=== PATIENT | female | born 1990 | race Caucasian/White ===

== ENCOUNTER 2024-08-17 07:27 | Outpatient (CLI) | payer OTHER, SELFPAY ==
--- NOTE | 2024-08-17 08:00 | CRLHL7_ITS ---
For Patients: As a result of the Century Cures Act, medical imaging exams and procedure reports are released immediately into your electronic medical record. You may view this report before your referring provider. If you have questions, please contact your health care provider. Indication: Chronic sinusitis. Technique: Noncontrast axial CT of the paranasal sinuses with coronal reformats are provided. No comparisons. Findings: 1-2 millimeter mucosal thickening floor the right maxillary sinus with 3-4 millimeter thick mucosal thickening within the floor of the left maxillary sinus. The remainder of the visualized paranasal sinuses are clear. The ostiomeatal complexes are patent bilaterally. The visualized intraorbital contents appear within normal limits. Impression: 1. Minor inflammatory change within the floor of the maxillary sinuses. Please note that all CT scans at this facility use dose modulation, iterative reconstruction, and/or weight-based dosing when appropriate to reduce radiation dose to as low as reasonably achievable. Dictated by Reji Snell MD @ 08/18/2024 3:46:07 PM (Electronically Signed)
== END 2024-08-17 07:28 | disposition home or self-care (01) ==
PROVIDERS: Visit Provider Otolaryngology
DX: J32.9 Chronic sinusitis, unspecified (principal)
CPT/HCPCS: 70486

== ENCOUNTER 2024-09-09 09:30 | Day surgery (SDC) | payer OTHER, SELFPAY ==
[2024-09-09] VITALS (12 sets, daily range): BP systolic 103–149; BP diastolic 78–105; PULSE 68–98; RESP 12–22; TEMP 36.4–36.8; O2SAT 93–98; BMI 34.7
[2024-09-09] MEDS: 0.9 % SODIUM CHLORIDE 500 ML 500 ML 100 ML IV (09:56)
[2024-09-09] MEDS: SODIUM CHLORIDE 0.9 % (FLUSH) 10 ML SYRINGE IVF (09:56)
[2024-09-09 09:57] LABS: Ur HCG Qualitative* Negative (Negative)
[2024-09-09] MEDS: OXYMETAZOLINE 0.05% NASAL SPRAY 2 SPRAY NOSTRIL-B (10:00)
[2024-09-09] MEDS: COCAINE HCL 4 % 4 ML SOLUTION NOSTRIL-B (11:47)
[2024-09-09] MEDS: MUPIROCIN 1 GM PACKET 1 APPLIC TOPICAL (11:47)
[2024-09-09] MEDS: AYR SALINE NASAL GEL 1 APPLIC NOSTRIL-B (11:47)
[2024-09-09] MEDS: BUPIVACAINE 0.5%/EPINEPHRINE 0.9 MG (30.9 ML) INJECTION (11:55)
--- NOTE | 2024-09-09 12:17 | W.ANESCHARGE ---
Anesthesia Charges Start Date/Time Anesthesia Start Date: 09/09/24 Anesthesia Start Time: 11:25 Stop Date/Time Anesthesia Stop Date: 09/09/24 Anesthesia Stop Time: 12:18
[2024-09-09] MEDS: fentaNYL 100 MCG/2 ML inj 50 MCG IVP (12:22)
--- NOTE | 2024-09-09 12:34 | SUR.PHASEI ---
Patient came to PACU with complaints of terrible throat pain. Vital signs taken, Patient's EKG in NSR and then Bigeminy and back to NSR. Anesthesia told of Nandainy and then patient stayed in NSR after approximately 1 minute. Medication given for throat pain.
--- NOTE | 2024-09-09 12:41 | W.PM.ENTPROC ---
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 0 degree endoscope was used to visualize left middle turbinate tara bullosa. Was incised along its inferolateral aspect and a small amount of bone resected with Jack forceps. The remainder of the turbinate was crushed with the Augie forceps A stab incision was made in the anterior head of the left inferior turbinate a tunnel created with a Luisito dissector the tara bone was outfractured a conservative anterior submucous resection performed. The Coblation was used for hemostasis. This was repeated on the right side in identical fashion He right hemitransfixion incision was made left anterior and posterior tunnels were created. A vertical incision was made through the cartilage just anterior to the bone and a right posterior tunnel created. The deflected portions of nasal septal bone were resected a large piece trimmed returned to intraseptal space. Hemitransfixion was closed with 2 4-0 chromic sutures. The image guidance system was used to confirm placement and the inferior quarter of the uncinate process taken down with a micro backbiter exposing natural ostium to maxillary sinus. This opening was then enlarged to an 8 mm diameter. I removed the small amount of polypoid tissue that was partially occluding the os. Silastic stents were secured on either side the septum with 3-0 nylon and Merocel packing placed in each side the nose. The patient procedure well was taken recovery in satisfactory condition. Blood loss was 25 mL. Surgeon: Santhosh Sloan MD
--- NOTE | 2024-09-09 12:41 | SUR.PHASEI ---
Patient meets anesthesia discharge criteria from PACU
--- NOTE | 2024-09-09 12:53 | W.ANESCHARGE ---
Anesthesia Charges Start Date/Time Anesthesia Start Date: 09/09/24 Anesthesia Start Time: 11:25 Stop Date/Time Anesthesia Stop Date: 09/09/24 Anesthesia Stop Time: 12:18
[2024-09-09] MEDS: IBUPROFEN 200 MG TABLET PO (12:55)
[2024-09-09] MEDS: ACETAMINOPHEN 325 MG TABLET PO (12:55)
[2024-09-09] MEDS: OXYCODONE 5 MG TABLET PO (12:55)
== END 2024-09-09 13:39 | disposition home or self-care (01) ==
PROVIDERS: Anesthesiology; Visit Provider Otolaryngology
PROC: (CPT 31231; principal; 2024-09-09 11:00)
DX: J34.2 Deviated nasal septum (principal); J34.3 Hypertrophy of nasal turbinates; J32.0 Chronic maxillary sinusitis; J34.89 Other specified disorders of nose and nasal sinuses; R51.9 Headache, unspecified; J33.9 Nasal polyp, unspecified
CPT/HCPCS: 30520; 30140; 31267; 00160; 81025; 88305; A9270; J0330; J1100; J1630; J2405; J2704; J3010; J7030

== ENCOUNTER 2024-12-08 11:24 | Outpatient (CLI) | payer OTHER, SELFPAY ==
--- NOTE | 2024-12-27 12:49 | W.PM.SLEEP ---
Sleep Study Details Details Interpreting Provider: Nathalia Date of Sleep Study: 12/08/24 Sleep Study Details: STUDY TYPE: Home unattended ? BMI:? Not recorded ORDERING PROVIDER:? Nathalia INDICATION:? Concerned about sleep apnea ? SLEEP SUMMARY:? 543 minutes monitored RESPIRATORY SUMMARY:? AHI 23.8 Low oxygen 85 3.1% of study oxygen less than 90% Snoring 97.6% PERIODIC LIMB MOVEMENTS OF SLEEP:? Not recorded CARDIAC:? Range 57-100, mean 71.2 beats per minute IMPRESSION:? Moderate obstructive sleep apnea with significant hypo oxygenation RECOMMENDATION: Treatment options include CPAP, dental appliance and/or airway expansion surgery.
== END 2024-12-08 11:25 | disposition home or self-care (01) ==
LOC: SLEEP 11:25
PROVIDERS: Visit Provider Otolaryngology
DX: G47.33 Obstructive sleep apnea (adult) (pediatric) (principal)
CPT/HCPCS: 95806